=== PATIENT | male | born 1960 | race Caucasian/White ===

== ENCOUNTER 2017-02-07 14:34 | Emergency (ER) | payer MEDICAID, SELFPAY ==
[~2017-02-07] VITALS: Ht 185.4 cm; Wt 89.5 kg
[2017-02-07] MEDS ORDERED: DIPHENHYDRAMINE 25 MG CAPSULE ONE (15:16)
[2017-02-07] MEDS ORDERED: DIPHENHYDRAMINE 25 MG CAPSULE PO ONE (15:30)
[2017-02-07 16:04] VITALS: BP 137/84
== END 2017-02-07 16:06 | disposition other institution (70) ==
LOC: ED 15:30
DX: T65.91XA Toxic effect of unspecified substance, accidental (unintentional), initial encounter (principal); Y92.9 Unspecified place or not applicable
CPT/HCPCS: 99285; J7512; Q0163

== ENCOUNTER 2018-06-06 16:16 | Emergency (ER) | payer MEDICAID ==
[~2018-06-06] VITALS: Ht 185.4 cm; Wt 94.3 kg
[2018-06-06 16:23] VITALS: BP 146/101
[2018-06-06] MEDS ORDERED: LIDOCAINE 1%-EPI 1:100K, 20ML ONE (16:49)
[2018-06-06] MEDS ORDERED: BUPIVACAINE 0.25% ONE (16:50)
--- NOTE | 2018-06-06 16:56 | NUR ---
PA AT BEDSIDE FOR DENTAL BLOCK
[2018-06-06] MEDS ORDERED: BUPIVACAINE/PF-EPI 0.25% 1:200K SQ ONE (17:00)
[2018-06-06] MEDS ORDERED: LIDOCAINE 1%-EPI 1:100K, 20ML SQ ONE (17:00)
== END 2018-06-06 17:18 | disposition home or self-care (01) ==
LOC: ED 17:10
DX: K04.7 Periapical abscess without sinus (principal); K02.9 Dental caries, unspecified
CPT/HCPCS: 64400; 99284

== ENCOUNTER 2020-07-11 11:49 | Emergency (ER) | payer MEDICAID ==
[~2020-07-11] VITALS: Ht 185.4 cm; Wt 102.4 kg
--- NOTE | 2020-07-11 11:52 | NUR ---
ASSEMBLER ARRANGER: [id number]
[2020-07-11 12:09] VITALS: BP 170/100
[2020-07-11] MEDS ORDERED: OXYcodone/APAP 10/325MG TABLET ONE (12:11)
[2020-07-11] MEDS ORDERED: OXYcodone/APAP 10/325MG TABLET PO ONE (12:30)
== END 2020-07-11 12:42 | disposition home or self-care (01) ==
LOC: ED 12:30
DX: K08.89 Other specified disorders of teeth and supporting structures (principal); K02.9 Dental caries, unspecified; I10 Essential (primary) hypertension; F17.200 Nicotine dependence, unspecified, uncomplicated
CPT/HCPCS: 99283